=== PATIENT | male | born 1975 | race American Indian/Alaskan Native ===

== ENCOUNTER 2021-09-06 09:26 | Emergency (ER) | payer SELFPAY ==
--- NOTE | 2021-09-06 09:55 | Emergency Department Report ---
ED General Adult HPI - General Chief complaint: Seizure Stated complaint: SEIZURE Time Seen by Provider: 09/06/21 09:52 Source: EMS Mode of arrival: Stretcher Limitations: No Limitations - History of Present Illness Initial comments: The patient presents to the emergency department for seizure activity. Patient was found on the side of the road after having a seizure. Patient states that he did not take his seizure medications this morning because he was embarrassed. Patient states he takes Dilantin, phenobarbital, Keppra for his seizures. Denies any chest pain or shortness of breath. Patient Janet informs me later that he has not taken his seizure medications in a couple of days due to the side effects and seizure medications for sexual activity is concerned -: Sudden Severity scale (0 -10): 0 Consistency: now resolved Improves with: none Worsens with: none Associated Symptoms: denies other symptoms Treatments Prior to Arrival: none - Related Data Previous Rx's Medication Instructions Recorded Last Taken Type Phenytoin [Dilantin] 100 mg PO Q8HR #30 capsule 09/06/21 Unknown Rx levETIRAcetam [Keppra TAB] 500 mg PO BID #60 tablet 09/06/21 Unknown Rx Allergies Allergy/AdvReac Type Severity Reaction Status Date / Time Penicillins Allergy Hives Verified 09/06/21 10:27 ED Review of Systems ROS: Stated complaint: SEIZURE Other details as noted in HPI Comment: All other systems reviewed and negative Constitutional: denies: chills, fever Eyes: denies: eye pain, eye discharge, vision change ENT: denies: ear pain, throat pain Respiratory: denies: cough, shortness of breath, wheezing Cardiovascular: denies: chest pain, palpitations Endocrine: no symptoms reported Gastrointestinal: denies: abdominal pain, nausea, diarrhea Genitourinary: denies: urgency, dysuria Musculoskeletal: denies: back pain, joint swelling, arthralgia Skin: denies: rash, lesions Neurological: denies: headache, weakness, paresthesias Psychiatric: denies: anxiety, depression Hematological/Lymphatic: denies: easy bleeding, easy bruising ED Past Medical Hx - Past Medical History Previous Medical History?: Yes Hx Seizures: Yes - Medications Home Medications: Home Medications Medication Instructions Recorded Confirmed Last Taken Type Phenytoin [Dilantin] 100 mg PO Q8HR #30 capsule 09/06/21 Unknown Rx levETIRAcetam [Keppra TAB] 500 mg PO BID #60 tablet 09/06/21 Unknown Rx ED Physical Exam - General Limitations: No Limitations General appearance: alert, in no apparent distress - Head Head exam: Present: atraumatic, normocephalic - Eye Eye exam: Present: normal appearance, PERRL, EOMI - ENT ENT exam: Present: mucous membranes moist - Neck Neck exam: Present: normal inspection - Respiratory Respiratory exam: Present: normal lung sounds bilaterally. Absent: respiratory distress - Cardiovascular Cardiovascular Exam: Present: regular rate, normal rhythm. Absent: systolic murmur, diastolic murmur, rubs, gallop - GI/Abdominal GI/Abdominal exam: Present: soft, normal bowel sounds. Absent: distended, tenderness - Rectal Rectal exam: Present: deferred - Extremities Exam Extremities exam: Present: normal inspection - Back Exam Back exam: Present: normal inspection - Neurological Exam Neurological exam: Present: alert, oriented X3, CN II-XII intact. Absent: motor sensory deficit - Psychiatric Psychiatric exam: Present: normal affect, normal mood - Skin Skin exam: Present: warm, dry, intact, normal color. Absent: rash ED Course Vital Signs 09/06/21 09/06/21 09/06/21 09:32 09:34 09:46 Temperature 98.9 F Pulse Rate 80 79 82 Respiratory 16 20 15 Rate Blood Pressure Blood Pressure 152/110 [Right] O2 Sat by Pulse 96 97 99 Oximetry 09/06/21 09/06/21 09/06/21 09:57 10:00 10:14 Temperature 97.9 F Pulse Rate 69 74 Respiratory 13 12 Rate Blood Pressure 121/66 Blood Pressure [Right] O2 Sat by Pulse 97 96 98 Oximetry 09/06/21 09/06/21 09/06/21 10:16 10:24 10:30 Temperature 97.9 F Pulse Rate 69 74 70 Respiratory 17 14 13 Rate Blood Pressure Blood Pressure 121/66 [Right] O2 Sat by Pulse 99 98 98 Oximetry 09/06/21 09/06/21 09/06/21 10:46 11:00 11:16 Temperature Pulse Rate 79 71 81 Respiratory 21 11 L 9 L Rate Blood Pressure Blood Pressure [Right] O2 Sat by Pulse 97 99 98 Oximetry 09/06/21 11:46 Temperature Pulse Rate 72 Respiratory 15 Rate Blood Pressure Blood Pressure [Right] O2 Sat by Pulse 92 Oximetry ED Medical Decision Making - Radiology Data Radiology results: report reviewed - Medical Decision Making Patient received IV Keppra, IV Ativan, p.o. Dilantin Critical care attestation.: If time is entered above; I have spent that time in minutes in the direct care of this critically ill patient, excluding procedure time. ED Disposition Clinical Impression: Seizure Disposition: HOME / SELF CARE / HOMELESS Is pt being admited?: No Does the pt Need Aspirin: No Condition: Stable Instructions: Epilepsy, Seizure, Adult Additional Instructions: return if worse Prescriptions: Phenytoin [Dilantin] 100 mg PO Q8HR #30 capsule levETIRAcetam [Keppra TAB] 500 mg PO BID #60 tablet Referrals: [facility] [Provider Group] - 3-5 Days [facility] [Provider Group] - 3-5 Days
[2021-09-06] MEDS ORDERED: LORazepam 2 MG/ML VIAL IV ONE (10:30)
[2021-09-06] MEDS ORDERED: levETIRAcetam 1000 MG/NS 0.75% 1,000 MG/100 ML BAG IV ONE (11:00)
--- NOTE | 2021-09-06 11:59 | Cat Scan Report ---
CT BRAIN: 09/06/2021 INDICATION / CLINICAL INFORMATION: seizure pt states he does nto like taking his medications to prevent seizures. COMPARISON: None available. FINDINGS: BRAIN/INTRACRANIAL STRUCTURES: Unenhanced CT images of the brain demonstrate no evidence of acute abn ormality. Ventricles and sulci are normal in size and shape. There is no evidence of ischemic injury, hemorrhage, or mass. There are no abnormal extra-axial fluid collections. EXTRACRANIAL STRUCTURES: Unremarkable. IMPRESSION: Negative unenhanced CT of the brain All CT scans at this location are performed using dose reduction to ALARA by means of automated expos ure control. Signer Name: Justin Nunez MD Signed: 09/06/2021 11:55 AM Workstation Name: [id number]
[2021-09-06] MEDS ORDERED: PROMETHAZINE 25 MG TAB PO ONE (12:11)
[2021-09-06] MEDS ORDERED: PHENYTOIN 1,000 MG in SODIUM CHLORIDE 0.9% 250ML 250 ML IV ONE (13:00)
[2021-09-06] MEDS ORDERED: PHENYTOIN 100 MG CAPSULE.ER PO ONE (13:14)
[2021-09-06 18:33] VITALS: BP 41/20
== END 2021-09-07 07:34 | disposition home or self-care (01) ==
LOC: ED 09:26
DX: G40.909 Epilepsy, unspecified, not intractable, without status epilepticus (principal); Z88.0 Allergy status to penicillin
CPT/HCPCS: 36415; 70450; 80184; 80185; 96365; 96375; 99284; J1165; J1953; J2060; J7050